=== PATIENT | female | born 1980 | race Caucasian/White ===

== ENCOUNTER 2023-06-29 16:00 | Outpatient (RCR) | payer BC, MEDICAID, SELFPAY | END 2023-06-29 17:00 | disposition home or self-care (01) | LOC: PT 16:00 | PROVIDERS: PCP Family Medicine; Visit Provider Family Medicine | DX: R60.0 Localized edema (principal); D17.9 Benign lipomatous neoplasm, unspecified; L03.311 Cellulitis of abdominal wall; E66.09 Other obesity due to excess calories | CPT/HCPCS: 97140; 97164; 97760 ==